=== PATIENT | female | born 1960 | race Caucasian/White ===

== ENCOUNTER 2020-04-06 06:34 | Outpatient (CLI) | payer OTHER, SELFPAY | END 2020-04-06 06:35 | disposition home or self-care (01) | PROVIDERS: PCP Family Medicine; Visit Provider Family Medicine | DX: E03.8 Other specified hypothyroidism (principal); E06.3 Autoimmune thyroiditis | CPT/HCPCS: 36415; 84443 ==

== ENCOUNTER 2020-04-23 07:09 | Outpatient (CLI) | payer OTHER, SELFPAY ==
[2020-04-23 09:17] LABS: Alanine Aminotransferase 44 U/L (4-35); Albumin Level 4.6 g/dL (3.5-5.1); Alkaline Phosphatase 131 U/L (38-126); Aspartate Amino Transferase 54 U/L (14-36); Bilirubin,Total 0.5 mg/dL (0.2-1.3); Blood Urea Nitrogen 12 mg/dL (7-17); Calcium 9.8 mg/dL (8.4-10.2); Carbon Dioxide 28 mmol/L (22-30); Chloride 102 mmol/L (98-107); Cholesterol 122 mg/dL (0-200); Estimated Glomerular Filt Rate > 60; Glucose 137 mg/dL (65-105); HDL Direct 31 mg/dL; Potassium 4.6 mmol/L (3.4-5.0); Sodium 138 mmol/L (137-145); Triglycerides 222 mg/dL (<150)
[2020-04-23 09:22] LABS: LDL Cholesterol Direct 43 mg/dL
== END 2020-04-23 07:10 | disposition home or self-care (01) ==
PROVIDERS: PCP Family Medicine; Visit Provider Family Medicine
DX: E78.5 Hyperlipidemia, unspecified (principal)
CPT/HCPCS: 36415; 80053; 80061

== ENCOUNTER 2021-10-27 06:58 | Outpatient (CLI) | payer OTHER, SELFPAY ==
--- NOTE | ~2021-10-27 | MR_ITS ---
EXAMINATION: MR brain/brain stem wo/w con DATE: 10/27/2021 08:18 INDICATION: Dizziness. TECHNIQUE: Magnetic resonance imaging (MRI) of the brain and brainstem was performed without and with 20 mL MultiHance intravenous contrast. Sequences included sagittal and axial T1-weighted FSE, axial diffusion-weighted FS EPI, axial T2*-weighted GRE, axial T2-weighted FLAIR Propeller, and axial T2-we ighted Propeller. Postcontrast sequences included axial, sagittal, and coronal T1-weighted FSE. Appar ent diffusion coefficient (ADC) maps were created. COMPARISON: None. FINDINGS: There are scattered areas of nonspecific increased T2-weighted signal intensity in the cere bral white matter, which is within normal limits for the patient's age. There is no intracranial hemo rrhage, acute infarction, or abnormal intracranial mass lesion. The ventricles are normal in size. Th e paranasal sinuses are clear. There are likely changes of ocular lens replacement surgeries. The mas toid air cells are normal. IMPRESSION: 1. Normal brain. Reviewed, dictated and finalized at location A. LABOURER IMPRESSION: 1. Normal brain.
[2021-10-27 07:42] LABS: Estimated Glomerular Filt Rate > 60
== END 2021-10-27 06:59 | disposition home or self-care (01) ==
LOC: ANHIMG 06:59
PROVIDERS: PCP Family Medicine; Visit Provider Family Medicine
DX: R42 Dizziness and giddiness (principal); H43.399 Other vitreous opacities, unspecified eye; H53.8 Other visual disturbances
CPT/HCPCS: 70553; A9577

== ENCOUNTER 2022-05-24 07:23 | Outpatient (CLI) | payer OTHER, SELFPAY ==
[2022-05-24 08:12] LABS: Anion Gap 6 mmol/L (8-16); Blood Urea Nitrogen 7 mg/dL (7-17); Calcium 9.1 mg/dL (8.4-10.2); Carbon Dioxide 28 mmol/L (22-30); Chloride 104 mmol/L (98-107); Estimated Glomerular Filt Rate > 60; Glucose 262 mg/dL (65-110); Potassium 5.2 mmol/L (3.4-5.0); Sodium 138 mmol/L (137-145)
[2022-05-24 08:34] LABS: Parathyroid Intact 99.4 pg/mL (7.5-53.5)
[2022-05-24 08:37] LABS: Basophils Absolute Auto 0.1 K/mm3 (0.0-0.1); Basophils Percent Auto 1.6 % (0.2-1.2); Eosinophils Absolute Auto 0.3 K/mm3 (0-0.3); Eosinophils Percent Auto 3.2 % (0-4.4); Hemoglobin 10.3 g/dL (12.0-15.0); Immature Granulocyte Absolute 0.05 K/mm3 (0.00-0.031); Immature Granulocyte Percent A 0.6 % (0-0.5); Lymphocytes Absolute Auto 2.72 K/mm3 (0.9-3.2); Lymphocytes Percent Auto 30.7 % (18.3-44.2); Mean Corpuscular HGB Conc 29.4 g/dl (32-36); Mean Corpuscular Volume 81.6 fl (80-100); Mean Platelet Volume 10.9 fl (7.4-10.4); Monocytes Absolute Auto 0.9 K/mm3 (0.1-0.6); Monocytes Percent Auto 9.7 % (2.6-8.5); Neutrophils Absolute Auto 4.8 K/mm3 (1.3-6.7); Neutrophils Percent Auto 54.2 % (45.5-73.1); Platelet Count Result 384 k/mm3 (150-375); Red Blood Count 4.29 M/mm3 (4.2-5.4); Red Cell Distribution Width 17.7 % (11.5-14.5); White Blood Count 8.9 K/mm3 (4.5-10.0)
[2022-05-24 09:25] LABS: Hypochromasia 1+ (NORMAL)
== END 2022-05-24 07:24 | disposition home or self-care (01) ==
PROVIDERS: PCP Family Medicine; Visit Provider Otolaryngology
DX: D64.9 Anemia, unspecified (principal); D35.1 Benign neoplasm of parathyroid gland
CPT/HCPCS: 36415; 80048; 83970; 85025

== ENCOUNTER 2022-05-30 07:50 | Outpatient (CLI) | payer OTHER, SELFPAY ==
[2022-05-30 08:36] LABS: Calcium 9.3 mg/dL (8.4-10.2); Phosphorus 3.3 mg/dL (2.5-4.5)
[2022-05-30 09:39] LABS: Vitamin D 25 Hydroxy 39.8 ng/mL
== END 2022-05-30 07:51 | disposition home or self-care (01) ==
PROVIDERS: PCP Family Medicine; Referring Provider Otolaryngology
DX: E34.9 Endocrine disorder, unspecified (principal); D35.1 Benign neoplasm of parathyroid gland
CPT/HCPCS: 36415; 82306; 82310; 84100

== ENCOUNTER 2022-06-05 08:31 | Outpatient (CLI) | payer OTHER, SELFPAY ==
--- NOTE | ~2022-06-05 | NM_ITS ---
EXAMINATION: NM parathyroid imaging w spect DATE: 06/05/2022 15:54 INDICATION: Parathyroid adenoma TECHNIQUE: 20.1 mCi Tc99m tetrofosmin (Myoview) was administered by intravenous route. Anterior image s of the neck were obtained at 10 minutes and 2 hours and 4 hours. Delayed SPECT imaging was also obt ained. COMPARISON: None. FINDINGS: There is no focus of persistent activity in the area of the thyroid or mediastinum to suggest parathy roid adenoma. The right thyroid lobe appears larger than the right suggesting possible partial left t hyroidectomy. IMPRESSION: 1: No focus of persistent delayed activity to suggest parathyroid adenoma. 2. Small left thyroid lobe suggesting prior partial left thyroidectomy. Correlate with surgical histo ry. Reviewed, dictated and finalized at location A. IMPRESSION: 1: No focus of persistent delayed activity to suggest parathyroid adenoma. 2. Small left thyroid lobe suggesting prior partial left thyroidectomy. Correla te with surgical history.
== END 2022-06-05 08:32 | disposition home or self-care (01) ==
PROVIDERS: PCP Family Medicine; Visit Provider Otolaryngology
DX: D35.1 Benign neoplasm of parathyroid gland (principal)
CPT/HCPCS: 78071; A9500

== ENCOUNTER 2022-06-21 07:13 | Outpatient (CLI) | payer OTHER, SELFPAY ==
[2022-06-25 13:39] LABS: Total Volume 3200 mL
== END 2022-06-21 07:14 | disposition home or self-care (01) ==
LOC: ANHLAB 07:17
PROVIDERS: PCP Family Medicine
DX: D35.1 Benign neoplasm of parathyroid gland (principal); E34.9 Endocrine disorder, unspecified
CPT/HCPCS: 82340

== ENCOUNTER 2022-09-06 07:57 | Outpatient (CLI) | payer OTHER, SELFPAY ==
--- NOTE | 2022-09-21 09:41 | WPDSLEEPSTUD ---
Sleep Study Date of Study: 09/06/22 Ordering Provider: Mario Garcia, Interpreting Physician: Chayito Bowden MD Sleep Study Type: Split Polysomnogram Height: 1.7 m Weight: 110.677 kg Body Mass Index: 38.2 Neck Circumference (inches): 16.5 [place]: 15 Reason for Sleep Study Snoring at night, gasping for breath Sleep History jesus Hwang is a 62-year-old woman with a history of snoring, gasping for breath and jerking during the night. She wakes up at night. She had a sleep study 20 or 30 years ago. She rarely awakens at night feeling short of breath. She occasionally awakens at night with heartburn, belching or coughing. She constantly snores loudly enough that others complain about it and is always worse when she has a cold. She occasionally wakes up gasping for breath at night. She frequently sweats excessively at night. She occasionally notices her heart pounding or beating irregularly at night. She occasionally falls asleep during the day and frequently this occurs involuntarily. She rarely falls asleep while driving. She does not have loss of muscle tone with strong emotion. She does not have daytime difficulties due to excessive sleepiness. She does not feel paralyzed on waking or falling asleep. She rarely has vivid dreamlike scenes on waking or falling asleep. She does not feel afraid to go to sleep. She occasionally has nightmares. She occasionally remembers her dreams. On occasion she has racing thoughts. She frequently feels sad or depressed. She constantly has anxiety. She frequently has muscular tension. She frequently notices parts of her body jerking. She frequently kicks at night. She occasionally has crawling and aching feelings in her legs. She frequently has leg pain at night. She frequently has morning jaw pain. She constantly grinds her teeth during sleep. She frequently is bothered by pain during the day. She rarely is awakened by pain at night. She constantly wakes up feeling stiff in the morning with sore achy muscles and pain in the neck and spine. She has dizziness, headaches, depression, memory problems and concentration difficulties. Normal bedtime is 8:00 p.m. falling asleep within 10-15 minutes, typically waking 3-4 times at night for 5 minutes. While awake, she looks at the clock, gets a drink, puts Vicks menthol on, and returns to sleep. she awakens at 4:15 a.m.. When her alarm rings, she gets up. She does not take naps in the afternoon or evening. A short nap lasting 10 or 15 minutes is not refreshing. She is usually drowsy for 1 hour after waking. She feels better in the morning compared to other times of day. Habits: Never smoked tobacco. Caffeine 4-6 servings per day. No alcohol or recreational drugs. ON LICENSE OF [facility] Past Medical History Medical History (Updated 09/21/22 @ 09:43 by Chayito Bowden MD) Allergies Anemia Arthritis Chondromalacia patellae syndrome Depression Diabetes Factor 5 Leiden mutation, heterozygous Generalized osteoarthritis of multiple sites Hx of blood clots IBS (irritable bowel syndrome) Inflammatory arthritis (~2010) Migraine Overweight Thyroid disease Surgical History Surgical History (Updated 06/14/22 @ 10:03 by Lefty Trejo) History of cardiac catheterization History of cataract extraction History of delivery History of D&C History of hysterectomy History of thyroidectomy Family History Family History (System 06/14/22 @ 10:03 by Lefty Trejo) Grandparent Family history of cataracts Family history of Alzheimer's disease Father Hypertension Asthma Cerebrovascular accident Family history of chronic obstructive pulmonary disease Family history of diabetes mellitus in first degree relative Family history of coronary artery disease Family history of congestive heart failure Mother Family history of hearing loss Other Family history of thyroid disease Social History Social History (System 06/14/22 @
[2022-09-21 09:53] VITALS: BMI 38.2
== END 2022-09-07 06:14 | disposition home or self-care (01) ==
LOC: ANHCSM 08:00
PROVIDERS: PCP Family Medicine; Visit Provider Family Medicine
DX: G47.30 Sleep apnea, unspecified (principal); G47.33 Obstructive sleep apnea (adult) (pediatric)
CPT/HCPCS: 95811

== ENCOUNTER 2022-10-26 06:39 | Outpatient (CLI) | payer OTHER, SELFPAY ==
[2022-10-26 07:15] LABS: Alanine Aminotransferase 33 U/L (6-35); Albumin Level 4.4 g/dL (3.5-5.1); Alkaline Phosphatase 149 U/L (38-126); Anion Gap 4 mmol/L (8-16); Aspartate Amino Transferase 44 U/L (14-36); Bilirubin,Total 0.3 mg/dL (0.2-1.3); Blood Urea Nitrogen 8 mg/dL (7-17); Calcium 9.1 mg/dL (8.4-10.2); Carbon Dioxide 31 mmol/L (22-30); Chloride 101 mmol/L (98-107); Estimated Glomerular Filt Rate > 60; Glucose 126 mg/dL (65-110); Potassium 4.3 mmol/L (3.4-5.0); Sodium 136 mmol/L (137-145)
[2022-10-26 07:26] LABS: Hematocrit 36.8 % (37.0-47.0); Hemoglobin 10.7 g/dL (12.0-15.0); Mean Corpuscular HGB Conc 29.1 g/dl (32-36); Mean Corpuscular Hemoglobin 24.7 pg (26-34); Mean Platelet Volume 10.5 fl (7.4-10.4); Platelet Count Result 336 k/mm3 (150-375); Red Blood Count 4.33 M/mm3 (4.2-5.4); Red Cell Distribution Width 18.1 % (11.5-14.5); White Blood Count 8.2 K/mm3 (4.5-10.0)
[2022-10-26 08:13] LABS: Free T4 Free Thyroxine 0.94 ng/mL (0.78-2.19)
[2022-10-26 08:26] LABS: Hemoglobin A1C 6.9 % (<5.7)
== END 2022-10-26 06:40 | disposition home or self-care (01) ==
LOC: ANHLAB 06:41
PROVIDERS: PCP Family Medicine; Visit Provider Physician Assistant Medical
DX: Z00.00 Encounter for general adult medical examination without abnormal findings (principal); E03.9 Hypothyroidism, unspecified; R53.83 Other fatigue; R73.03 Prediabetes; E78.2 Mixed hyperlipidemia
CPT/HCPCS: 36415; 80053; 83036; 84439; 84443; 85027

== ENCOUNTER 2022-10-27 09:45 | Outpatient (CLI) | payer OTHER, SELFPAY ==
[2022-10-27 12:57] LABS: Iron 81 ug/dL (37-170)
[2022-10-27 13:07] LABS: Percent Iron Saturation 15 % (20-50)
[2022-10-27 13:34] LABS: Ferritin 8.04 ng/mL (11.1-264)
== END 2022-10-27 09:46 | disposition home or self-care (01) ==
LOC: ANHLAB 09:46
PROVIDERS: PCP Family Medicine; Visit Provider Physician Assistant Medical
DX: D64.9 Anemia, unspecified (principal)
CPT/HCPCS: 36415; 82728; 83540; 83550

== ENCOUNTER 2023-01-23 07:00 | Outpatient (CLI) | payer OTHER, SELFPAY ==
[2023-01-23 07:50] LABS: Hematocrit 44.9 % (37.0-47.0); Mean Corpuscular HGB Conc 31.2 g/dl (32-36); Mean Corpuscular Hemoglobin 29.5 pg (26-34); Mean Corpuscular Volume 94.5 fl (80-100); Mean Platelet Volume 10.5 fl (7.4-10.4); Platelet Count Result 294 k/mm3 (150-375); Red Blood Count 4.75 M/mm3 (4.2-5.4); Red Cell Distribution Width 15.5 % (11.5-14.5)
[2023-01-23 08:07] LABS: Magnesium 1.8 mg/dL (1.6-2.3); Phosphorus 3.4 mg/dL (2.5-4.5)
[2023-01-23 08:08] LABS: Iron 88 ug/dL (37-170)
[2023-01-23 08:15] LABS: Parathyroid Intact 73.9 pg/mL (7.5-53.5)
[2023-01-23 08:18] LABS: Percent Iron Saturation 20 % (20-50)
[2023-01-23 08:24] LABS: Free T4 Free Thyroxine 1.36 ng/mL (0.78-2.19); Vitamin D 25 Hydroxy 54.1 ng/mL
[2023-01-23 08:38] LABS: MALB Creatinine Ratio < 15.4 mg/g (0-30); Microalbumin Urine Random < 6.0 mg/L (0-16.7)
[2023-02-01 06:42] LABS: Calcium/Creatinine Ratio, Ur 134 mg/g creat (10-320); Urine Calcium, Random 4.9 mg/dL (***)
== END 2023-01-23 07:01 | disposition home or self-care (01) ==
PROVIDERS: PCP Family Medicine; Referring Provider Physician Assistant Medical; Visit Provider Internal Medicine
DX: E21.3 Hyperparathyroidism, unspecified (principal); E11.9 Type 2 diabetes mellitus without complications; D64.9 Anemia, unspecified; R53.83 Other fatigue
CPT/HCPCS: 36415; 82043; 82306; 82310; 82570; 82607; 82728; 83540; 83550; 83735; 83970; 84100; 84439; 84443; 85027

== ENCOUNTER 2023-01-24 07:13 | Outpatient (CLI) | payer OTHER, SELFPAY ==
[2023-01-24 08:01] LABS: Alanine Aminotransferase 35 U/L (6-35); Albumin Level 4.7 g/dL (3.5-5.1); Alkaline Phosphatase 127 U/L (38-126); Anion Gap 7 mmol/L (8-16); Aspartate Amino Transferase 44 U/L (14-36); Bilirubin,Total 0.6 mg/dL (0.2-1.3); Blood Urea Nitrogen 10 mg/dL (7-17); Calcium 9.8 mg/dL (8.4-10.2); Carbon Dioxide 29 mmol/L (22-30); Chloride 104 mmol/L (98-107); Estimated Glomerular Filt Rate > 60; Glucose 123 mg/dL (65-110); Potassium 4.8 mmol/L (3.4-5.0); Sodium 140 mmol/L (137-145)
== END 2023-01-24 07:14 | disposition home or self-care (01) ==
LOC: ANHLAB 07:14
PROVIDERS: PCP Family Medicine; Visit Provider Physician Assistant Medical
DX: E78.2 Mixed hyperlipidemia (principal)
CPT/HCPCS: 36415; 80053

== ENCOUNTER 2023-03-07 13:32 | Outpatient (CLI) | payer OTHER, SELFPAY ==
--- NOTE | ~2023-03-07 | DEXA_ITS ---
Bone Density Report Name: YANIQUE ARREOLA Age: 63 Sex: Female Ethnicity: White Date of : 1960 Indication: hyperparathyroidism; height loss; hysterectomy; postmenopausal Referring Provider: COTY KIRKPATRICK Study: Bone densitometry was performed. Exam Date: March 07, 2023 Accession number: [id number] Bone Density: Region BMD T-score Z-score Classification AP Spine(L1-L4) 1.121 0.7 2.2 Normal Femoral Neck (Left) 0.816 -0.3 1.1 Normal Total Hip (Left) 1.005 0.5 1.6 Normal Femoral Neck (Right) 0.863 0.1 1.5 Normal Total Hip (Right) 0.975 0.3 1.3 Normal Total Hip Mean 0.990 0.4 1.5 Normal World Health Organization criteria for BMD impression classify patients as: Normal (T-score at or above -1.0), Osteopenia (T-score between -1.0 and -2.5), or Osteoporosis (T-score at or below -2.5). 10-year Fracture Risk: FRAX not reported because: All T-scores for Spine Total, Hip Total, Femoral Neck at or above -1.0 Clinical Information Provided by Patient: Has the following medical conditions: Hyperparathyroidism, Hysterectomy Patient maximum height was 69 Menopause Age: 33 No regular weight bearing exercise Onset of menses at age 13 Number of children 2 Impression: The patient has normal bone mass. Discussion: BONE DENSITY IS ABOVE THE MINIMUM DESIRABLE LEVEL AT ALL SKELETAL SITES TESTED. This patient?s bone mineral density is above the minimum desirable level (T-score -1.0 or better) at all sites measured. The patient should follow a healthful lifestyle (good nutrition with adequate calcium and vitamin D, and appropriate weight-bearing exercise). Follow-Up: Consider repeating this study in 5 years or sooner if there is some new clinical indication. Reported by: AMY on 03/07/2023 1:58:00 PM. Reviewed, dictated and finalized at location A. [facility]
--- NOTE | ~2023-03-07 | DEXA_ITS ---
Bone Density Report Name: YANIQUE ARREOLA Age: 63 Sex: Female Ethnicity: White Date of : 1960 Indication: hyperparathyroidism; height loss; hysterectomy; postmenopausal Referring Provider: COTY KIRKPATRICK Study: Bone densitometry was performed. Exam Date: March 07, 2023 Accession number: [id number] Bone Density: Region BMD T-score Z-score Classification Total Forearm (Left) 0.474 -1.9 -0.6 1/3 Forearm (Left) 0.590 -1.7 -0.3 UD Forearm (Left) 0.352 -1.6 -0.5 World Health Organization criteria for BMD impression classify patients as: Normal (T-score at or above -1.0), Osteopenia (T-score between -1.0 and -2.5), or Osteoporosis (T-score at or below -2.5). Clinical Information Provided by Patient: Has the following medical conditions: Hyperparathyroidism, Hysterectomy Patient maximum height was 69 Menopause Age: 33 No regular weight bearing exercise Onset of menses at age 13 Number of children 2 Impression: The patient has low bone mass, based on the Left Third Radius T-score. Discussion: BONE DENSITY IS LOW AT ONE OR MORE SKELETAL SITES. This patient's lowest T-score is low at one or more skeletal sites. It meets the World Health Organization's (WHO) criteria for ?low bone mass? (T-score between -1.0 and -2.5). The patient's 10-year risk of fracture as calculated by FRAX is less than the threshold where pharmacological therapy is recommended by the National Osteoporosis Foundation (NOF). However, all treatment decisions require clinical judgment and consideration of individual patient factors, including patient preferences, comorbidities, previous drug use, risk factors not captured in the FRAX model (e.g., frailty, falls, vitamin D deficiency, increased bone turnover, interval significant decline in bone density) and possible under or overestimation of fracture risk by FRAX. The patient should follow a healthful lifestyle (good nutrition with adequate calcium and vitamin D, and appropriate weight-bearing exercise). Follow-Up: Consider repeating this study in 2 to 3 years to reassess this patient's status, or sooner if there is some new clinical indication. Reported by: AMY on 03/07/2023 2:09:00 PM. Reviewed, dictated and finalized at location AGuillermo ZAMBRANO
--- NOTE | ~2023-03-07 | US_ITS ---
EXAMINATION: US thyroid DATE: 03/07/2023 14:39 INDICATION: Nontoxic single thyroid nodule. TECHNIQUE: Multiple ultrasound images of the thyroid were obtained. COMPARISON: None. FINDINGS: The right thyroid lobe measures 6.6 x 3.0 x 2.6 cm. The left thyroid lobe measures 3.5 x 1.7 x 2.0 c m. The thyroid demonstrates diffusely heterogeneous echogenicity. Vascularity is increased. In the r ight thyroid lobe, there is a 7 mm benign cystic nodule (TI-RADS TR1). IMPRESSION: 1. Heterogeneous, hypervascular thyroid, consistent with chronic lymphocytic (Merry) thyroiditis. Reviewed, dictated and finalized at location A. IMPRESSION: 1. Heterogeneous, hypervascular thyroid, consistent with chronic lymphocytic (H ashimoto) thyroiditis.
== END 2023-03-07 13:33 | disposition home or self-care (01) ==
LOC: ANHIMG 13:35
PROVIDERS: PCP Family Medicine; Visit Provider Internal Medicine
DX: E21.3 Hyperparathyroidism, unspecified (principal); E04.1 Nontoxic single thyroid nodule; M85.9 Disorder of bone density and structure, unspecified; Z78.0 Asymptomatic menopausal state
CPT/HCPCS: 76536; 77080; 77081

== ENCOUNTER 2023-03-13 11:02 | Outpatient (CLI) | payer OTHER, SELFPAY ==
--- NOTE | 2023-03-13 | ECG_ITS ---
Measurements Intervals [place] Rate: 62 P: 58 MO: 137 QRS: 1 QRSD: 117 T: 30 QT: 413 QTc: 419 Interpretive Statements SINUS RHYTHM INTRAVENTRICULAR CONDUCTION DELAY BASELINE WANDER- I, III BORDERLINE ECG NO PREVIOUS ECG AVAILABLE FOR COMPARISON Electronically Signed On 03-13-2023 13:34:42 CDT by Johnson Barrios D.O.
== END 2023-03-13 11:03 | disposition home or self-care (01) ==
LOC: ANHLAB 11:06 → ANHCARD 11:06
PROVIDERS: PCP Family Medicine; Visit Provider Family Medicine
DX: R03.0 Elevated blood-pressure reading, without diagnosis of hypertension (principal); E11.9 Type 2 diabetes mellitus without complications; Z01.818 Encounter for other preprocedural examination; I45.9 Conduction disorder, unspecified
CPT/HCPCS: 93005

== ENCOUNTER 2023-04-11 07:30 | Outpatient (CLI) | payer OTHER, SELFPAY ==
[2023-04-11 08:00] LABS: Hemoglobin A1C 5.4 % (<5.7)
== END 2023-04-11 07:31 | disposition home or self-care (01) ==
LOC: ANHLAB 07:31
PROVIDERS: PCP Family Medicine; Visit Provider Internal Medicine
DX: E11.9 Type 2 diabetes mellitus without complications (principal)
CPT/HCPCS: 36415; 83036

== ENCOUNTER 2023-04-26 14:07 | Outpatient (CLI) | payer OTHER, SELFPAY | END 2023-04-26 14:08 | disposition home or self-care (01) | LOC: ANHAUDIO 14:08 | PROVIDERS: PCP Family Medicine; Visit Provider Family Medicine | DX: H90.3 Sensorineural hearing loss, bilateral (principal) | CPT/HCPCS: 92557; 92567 ==

== ENCOUNTER 2023-05-03 07:00 | Outpatient (CLI) | payer OTHER, SELFPAY ==
[2023-05-03 07:31] LABS: Alanine Aminotransferase 25 U/L (6-35); Albumin Level 4.6 g/dL (3.5-5.1); Alkaline Phosphatase 117 U/L (38-126); Anion Gap 6 mmol/L (8-16); Aspartate Amino Transferase 32 U/L (14-36); Bilirubin,Total 0.4 mg/dL (0.2-1.3); Blood Urea Nitrogen 10 mg/dL (7-17); Calcium 9.7 mg/dL (8.4-10.2); Carbon Dioxide 31 mmol/L (22-30); Chloride 105 mmol/L (98-107); Cholesterol 93 mg/dL (0-200); Estimated Glomerular Filt Rate > 60; Glucose 89 mg/dL (65-110); HDL Direct 33 mg/dL; Potassium 4.7 mmol/L (3.4-5.0); Sodium 142 mmol/L (137-145); Triglycerides 149 mg/dL (<150)
[2023-05-03 07:42] LABS: LDL Cholesterol Direct 31 mg/dL
== END 2023-05-03 07:01 | disposition home or self-care (01) ==
PROVIDERS: PCP Family Medicine; Visit Provider Physician Assistant Medical
DX: E78.2 Mixed hyperlipidemia (principal)
CPT/HCPCS: 36415; 80053; 80061

== ENCOUNTER 2023-08-24 06:58 | Outpatient (CLI) | payer OTHER, SELFPAY ==
[2023-08-24 07:35] LABS: Basophils Absolute Auto 0.1 K/mm3 (0.0-0.1); Basophils Percent Auto 1.5 % (0.2-1.2); Eosinophils Absolute Auto 0.2 K/mm3 (0-0.3); Eosinophils Percent Auto 1.9 % (0-4.4); Hematocrit 40.7 % (37.0-47.0); Hemoglobin 12.8 g/dL (12.0-15.0); Immature Granulocyte Absolute 0.02 K/mm3 (0.00-0.031); Immature Granulocyte Percent A 0.3 % (0-0.5); Lymphocytes Absolute Auto 2.72 K/mm3 (0.9-3.2); Mean Corpuscular HGB Conc 31.4 g/dl (32-36); Mean Corpuscular Hemoglobin 30.8 pg (26-34); Mean Corpuscular Volume 98.1 fl (80-100); Mean Platelet Volume 10.3 fl (7.4-10.4); Monocytes Absolute Auto 0.7 K/mm3 (0.1-0.6); Monocytes Percent Auto 8.5 % (2.6-8.5); Neutrophils Absolute Auto 4.3 K/mm3 (1.3-6.7); Neutrophils Percent Auto 53.8 % (45.5-73.1); Platelet Count Result 290 k/mm3 (150-375); Red Blood Count 4.15 M/mm3 (4.2-5.4); Red Cell Distribution Width 12.5 % (11.5-14.5)
[2023-08-24 08:10] LABS: Free T4 Free Thyroxine 1.38 ng/mL (0.78-2.19)
[2023-08-24 08:40] LABS: Iron 171 ug/dL (37-170)
[2023-08-24 08:50] LABS: Percent Iron Saturation 46 % (20-50)
[2023-08-24 09:27] LABS: Vitamin D 25 Hydroxy 50.3 ng/mL
== END 2023-08-24 06:59 | disposition home or self-care (01) ==
PROVIDERS: Internal Medicine; PCP Family Medicine; Visit Provider Physician Assistant Medical
DX: E55.9 Vitamin D deficiency, unspecified (principal); R53.83 Other fatigue; D64.9 Anemia, unspecified; F41.9 Anxiety disorder, unspecified; E03.9 Hypothyroidism, unspecified
CPT/HCPCS: 36415; 82306; 82607; 82728; 83540; 83550; 84439; 84443; 85025

== ENCOUNTER 2023-08-31 12:28 | Outpatient (CLI) | payer OTHER, SELFPAY ==
--- NOTE | ~2023-08-31 | CT_ITS ---
Clinical Indication: Mass CT Scan of the Neck and Chest with Contrast: Technique: Contiguous sections were acquired throughout the neck and chest after intravenous administ ration of 125 cc of Omnipaque 350. Dose reduction technique was used on this scan by utilizing autom ated exposure control and iterative reconstruction technique. The dose-length product (DLP) was 590.3 0 mGy-cm. Findings: Thyroid gland is mildly enlarged and heterogeneous, without definite, discrete nodule. Ther e are shotty, mildly prominent left cervical lymph nodes, with largest individual node probably measu ring 13 mm in short axis along the posterior margin of the left sternocleidomastoid muscle (series 3 image 54). There is also mildly enlarged left supraclavicular lymph node at the base neck measuring 1 3 mm in short axis (series 3 image 74). No definite enlarged right cervical lymph nodes identified. Parapharyngeal fat preserved bilaterally. Parotid and submandibular glands are unremarkable. Orbits a re unremarkable. Paranasal sinuses and mastoid air cells are clear. Vascular structures in the neck e nhance normally. There is no evidence of any significant mediastinal, hilar or axillary lymphadenopathy. The mediastin al soft tissues and vascular structures appear normal. There is no evidence of pleural or pericardial effusion. The lungs are clear. No pulmonary nodules or infiltrates are noted. The visualized upper abdomen is unremarkable. Impression: Mild left cervical lymphadenopathy, as detailed above. Diagnostic considerations could include infect ious/inflammatory lymph nodes versus lymphoma or other metastatic disease. Consider tissue sampling o f the larger nodes, as clinically indicated. No significant abnormality seen in the chest. Reviewed, dictated and finalized at location M. Impression: Mild left cervical lymphadenopathy, as detailed above. Diagnostic consideration s could include infectious/inflammatory lymph nodes versus lymphoma or other me tastatic disease. Consider tissue sampling of the larger nodes, as clinically i ndicated. No significant abnormality seen in the chest.
[2023-08-31 12:47] LABS: Estimated Glomerular Filt Rate > 60
== END 2023-08-31 12:29 | disposition home or self-care (01) ==
PROVIDERS: PCP Family Medicine; Visit Provider Physician Assistant Medical
DX: R22.1 Localized swelling, mass and lump, neck (principal)
CPT/HCPCS: 70491; 71260; Q9967

== ENCOUNTER 2023-09-14 09:11 | Outpatient (CLI) | payer OTHER, SELFPAY ==
--- NOTE | ~2023-09-14 | US_ITS ---
EXAMINATION: US biopsy lymph node DATE: 09/14/2023 10:07 INDICATION: Localized enlarged left cervical lymph nodes TECHNIQUE: The procedure including the risks and benefits was discussed with the patient. Risks discu ssed included bleeding and infection. The patient understood the risks and agreed to proceed. The sk in overlying the supraclavicular left base of the neck was prepped and draped in usual sterile fashio n. Anesthetic was administered with 1% lidocaine subcutaneously. A 14 gauge core biopsy needle was advanced under continuous ultrasound observation to the lesion of interest. 5 core biopsy specimens were obtained, 3 placed in RPMI media and 2 in formalin. The needle was removed and the entry site w as cleaned and dressed. Post procedure ultrasound demonstrated no significant hemorrhage. FINDINGS: Ultrasound images demonstrate biopsy needle advanced through a 1.5 x 1.1 cm left supraclavi cular. IMPRESSION: 1. Successful Ultrasound-guided biopsy of one of several mildly enlarged left supraclavicular lymph n odes. Reviewed, dictated and finalized at location A. IMPRESSION: 1. Successful Ultrasound-guided biopsy of one of several mildly enlarged left s upraclavicular lymph nodes.
== END 2023-09-14 09:12 | disposition home or self-care (01) ==
PROVIDERS: PCP Family Medicine; Visit Provider Physician Assistant Medical
DX: R59.0 Localized enlarged lymph nodes (principal)
CPT/HCPCS: 38505; 76942; 88305; 88333

== ENCOUNTER 2023-10-31 11:06 | Outpatient (CLI) | payer OTHER, SELFPAY ==
[2023-10-31 11:27] LABS: Basophils Absolute Auto 0.1 K/mm3 (0.0-0.1); Basophils Percent Auto 1.2 % (0.2-1.2); Eosinophils Absolute Auto 0.1 K/mm3 (0-0.3); Eosinophils Percent Auto 1.3 % (0-4.4); Hematocrit 40.1 % (37.0-47.0); Hemoglobin 12.8 g/dL (12.0-15.0); Immature Granulocyte Absolute 0.02 K/mm3 (0.00-0.031); Immature Granulocyte Percent A 0.2 % (0-0.5); Lymphocytes Absolute Auto 2.96 K/mm3 (0.9-3.2); Lymphocytes Percent Auto 34.5 % (18.3-44.2); Mean Corpuscular HGB Conc 31.9 g/dl (32-36); Mean Corpuscular Hemoglobin 30.6 pg (26-34); Mean Corpuscular Volume 95.9 fl (80-100); Monocytes Absolute Auto 0.7 K/mm3 (0.1-0.6); Monocytes Percent Auto 7.9 % (2.6-8.5); Neutrophils Absolute Auto 4.7 K/mm3 (1.3-6.7); Neutrophils Percent Auto 54.9 % (45.5-73.1); Platelet Count Result 281 k/mm3 (150-375); Red Blood Count 4.18 M/mm3 (4.2-5.4); Red Cell Distribution Width 12.5 % (11.5-14.5); White Blood Count 8.6 K/mm3 (4.5-10.0)
[2023-10-31 17:03] LABS: Iron 66 ug/dL (37-170)
[2023-10-31 17:13] LABS: Percent Iron Saturation 18 % (20-50)
[2023-11-08 16:28] LABS: Soluble Transferrin Receptor 0.99 mg/L (0.76-1.76)
== END 2023-10-31 11:07 | disposition home or self-care (01) ==
LOC: ANHLAB 11:08
PROVIDERS: PCP Family Medicine; Visit Provider Internal Medicine Hematology & Oncology
DX: D64.9 Anemia, unspecified (principal)
CPT/HCPCS: 36415; 83540; 83550; 84238; 85025

== ENCOUNTER 2024-01-15 06:58 | Outpatient (CLI) | payer OTHER, SELFPAY ==
[2024-01-15 07:41] LABS: Cholesterol 124 mg/dL (0-200); HDL Direct 45 mg/dL; Triglycerides 121 mg/dL (<150)
[2024-01-15 07:43] LABS: Alanine Aminotransferase 24 U/L (6-35); Albumin Level 4.4 g/dL (3.5-5.1); Alkaline Phosphatase 113 U/L (38-126); Anion Gap 7 mmol/L (8-16); Aspartate Amino Transferase 40 U/L (14-36); Bilirubin,Total 0.6 mg/dL (0.2-1.3); Blood Urea Nitrogen 9 mg/dL (7-17); Calcium 9.7 mg/dL (8.4-10.2); Carbon Dioxide 31 mmol/L (22-30); Chloride 105 mmol/L (98-107); Estimated Glomerular Filt Rate > 60; Glucose 91 mg/dL (65-110); Potassium 3.9 mmol/L (3.4-5.0); Sodium 143 mmol/L (137-145)
[2024-01-15 07:52] LABS: LDL Cholesterol Direct 50 mg/dL
[2024-01-15 08:53] LABS: Free T4 Free Thyroxine 1.03 ng/mL (0.78-2.19); Hemoglobin A1C 5.3 % (<5.7)
[2024-01-15 08:59] LABS: Creatinine Urine 21.1 mg/dL
[2024-01-15 09:09] LABS: Microalbumin Urine Random < 6.0 mg/L (0-16.7)
== END 2024-01-15 06:59 | disposition home or self-care (01) ==
LOC: ANHLAB 07:00
PROVIDERS: PCP Family Medicine; Referring Provider Physician Assistant Medical; Visit Provider Internal Medicine
DX: E11.9 Type 2 diabetes mellitus without complications (principal); E78.2 Mixed hyperlipidemia
CPT/HCPCS: 36415; 80053; 80061; 82043; 83036; 84439; 84443

== ENCOUNTER 2024-03-12 12:45 | Outpatient (CLI) | payer OTHER, SELFPAY ==
[2024-03-12 13:15] LABS: Basophils Absolute Auto 0.1 K/mm3 (0.0-0.1); Basophils Percent Auto 1.1 % (0.2-1.2); Eosinophils Absolute Auto 0.2 K/mm3 (0-0.3); Eosinophils Percent Auto 2.7 % (0-4.4); Hematocrit 39.3 % (37.0-47.0); Hemoglobin 12.4 g/dL (12.0-15.0); Immature Granulocyte Absolute 0.03 K/mm3 (0.00-0.031); Immature Granulocyte Percent A 0.4 % (0-0.5); Lymphocytes Absolute Auto 2.71 K/mm3 (0.9-3.2); Lymphocytes Percent Auto 34.3 % (18.3-44.2); Mean Corpuscular HGB Conc 31.6 g/dl (32-36); Mean Corpuscular Hemoglobin 31.3 pg (26-34); Mean Corpuscular Volume 99.2 fl (80-100); Mean Platelet Volume 10.3 fl (7.4-10.4); Monocytes Absolute Auto 0.7 K/mm3 (0.1-0.6); Monocytes Percent Auto 8.3 % (2.6-8.5); Neutrophils Absolute Auto 4.2 K/mm3 (1.3-6.7); Neutrophils Percent Auto 53.2 % (45.5-73.1); Platelet Count Result 271 k/mm3 (150-375); Red Blood Count 3.96 M/mm3 (4.2-5.4); Red Cell Distribution Width 12.5 % (11.5-14.5); White Blood Count 7.9 K/mm3 (4.5-10.0)
[2024-03-14 13:57] LABS: EBV Virus Capsid Ag IgG Ab >750.00 U/mL; EBV Virus Capsid Ag IgM Ab <36.00 U/mL
== END 2024-03-12 12:46 | disposition home or self-care (01) ==
LOC: ANHLAB 12:47
PROVIDERS: PCP Family Medicine; Visit Provider Physician Assistant Medical
DX: R59.1 Generalized enlarged lymph nodes (principal); R53.83 Other fatigue
CPT/HCPCS: 36415; 85025; 86664; 86665

== ENCOUNTER 2024-03-25 14:37 | Outpatient (CLI) | payer OTHER, SELFPAY ==
--- NOTE | ~2024-03-25 | US_ITS ---
EXAMINATION: US soft tissue head and neck DATE: 03/25/2024 15:11 INDICATION: Nonspecific lymphadenitis, unspecified. TECHNIQUE: Multiple grayscale and Doppler ultrasound images of the head and neck were obtained. COMPARISON: CT neck 08/31/2023 FINDINGS: There are normal-sized lymph nodes in left neck in the patient's area of concern. IMPRESSION: 1. Normal lymph nodes in left neck in the patient's area of concern. Reviewed, dictated and finalized at location A.
== END 2024-03-25 14:38 | disposition home or self-care (01) ==
PROVIDERS: PCP Family Medicine; Visit Provider Physician Assistant Medical
DX: I88.9 Nonspecific lymphadenitis, unspecified (principal)
CPT/HCPCS: 76536

== ENCOUNTER 2024-05-02 07:37 | Outpatient (CLI) | payer OTHER, SELFPAY ==
[2024-05-02 08:51] LABS: Complement C3 122 mg/dL (88-165); Immunoglobulin A 104 mg/dL (70-400); Immunoglobulin G 1107 mg/dL (700-1600); Immunoglobulin M 51 mg/dL (40-230); Rheumatoid Factor < 12.0 IU/ML (<12)
[2024-05-02 08:53] LABS: Basophils Absolute Auto 0.1 K/mm3 (0.0-0.1); Basophils Percent Auto 1.5 % (0.2-1.2); Eosinophils Absolute Auto 0.2 K/mm3 (0-0.3); Eosinophils Percent Auto 2.8 % (0-4.4); Hemoglobin 12.3 g/dL (12.0-15.0); Immature Granulocyte Absolute 0.01 K/mm3 (0.00-0.031); Immature Granulocyte Percent A 0.1 % (0-0.5); Lymphocytes Absolute Auto 2.49 K/mm3 (0.9-3.2); Lymphocytes Percent Auto 36.5 % (18.3-44.2); Mean Corpuscular HGB Conc 30.8 g/dl (32-36); Mean Corpuscular Hemoglobin 31.1 pg (26-34); Mean Platelet Volume 10.4 fl (7.4-10.4); Monocytes Absolute Auto 0.6 K/mm3 (0.1-0.6); Monocytes Percent Auto 8.6 % (2.6-8.5); Neutrophils Absolute Auto 3.5 K/mm3 (1.3-6.7); Neutrophils Percent Auto 50.5 % (45.5-73.1); Platelet Count Result 282 k/mm3 (150-375); Red Blood Count 3.96 M/mm3 (4.2-5.4); Red Cell Distribution Width 12.4 % (11.5-14.5); White Blood Count 6.8 K/mm3 (4.5-10.0)
[2024-05-02 09:23] LABS: Appearance Urine Clear (Clear); Bilirubin Urine Negative (Negative); Blood Urine Negative (Negative); Color Urine Yellow (Yellow); Glucose Urine UA Negative (Negative); Ketones Urine Negative (Negative); Leukocyte Esterase Ur Negative LEU/UL (Negative); Nitrate Urine Negative (Negative); Protein Urine Negative (Negative); Specific Grav Ur 1.005 (1.001-1.035); Urobilinogen Urine 0.2 mg/dL (<2.0)
[2024-05-02 09:27] LABS: Add Urine Microscopic? NO
[2024-05-02 10:13] LABS: Creatinine Urine 19.9 mg/dL; Total Protein Urine Random 11 mg/dL; Ur Ttl Prot Creatinine Ratio 0.55 mg/mg (0-0.20)
[2024-05-03 04:38] LABS: Protein, Total 7.1 g/dL (6.1-8.1)
[2024-05-05 13:33] LABS: Albumin 4.2 g/dL (3.8-4.8); Alpha 1 Globulin 0.3 g/dL (0.2-0.3); Alpha 2 Globulin 0.8 g/dL (0.5-0.9); Beta 1 Globulin 0.5 g/dL (0.4-0.6); Gamma Globulin 1.1 g/dL (0.8-1.7)
[2024-05-05 13:43] LABS: Kappa\\Lambda Light Chains 1.34 (0.26-1.65); Lambda Light Chain 13.9 mg/L (5.7-26.3)
[2024-05-05 14:28] LABS: SS-A >8.0 POS AI (<1.0 NEG); SS-B <1.0 NEG AI (<1.0 NEG)
[2024-05-05 14:53] LABS: Cyclic Citrullinated Peptide <16 UNITS
[2024-05-06 12:28] LABS: ANA Pattern Cytoplasmic; ANA Titer 1:40 titer; Anti Nuclear Antibody Pattern Nuclear, Speckled; Anti Nuclear Antibody Titer 1:40 titer
== END 2024-05-02 07:38 | disposition home or self-care (01) ==
DX: M35.00 Sjogren syndrome, unspecified (principal)
CPT/HCPCS: 36415; 81003; 82570; 82784; 83883; 84155; 84156; 84165; 85025; 86038; 86039; 86160; 86200; 86235; 86430

== ENCOUNTER 2024-05-08 11:50 | Outpatient (CLI) | payer OTHER, SELFPAY ==
--- NOTE | 2024-05-08 11:52 | ECG_ITS ---
Test Date: 2024-05-08 12:18:38 Measurements Intervals [place] Rate: 63 P: 5 CO: 130 QRS: 5 QRSD: 107 T: 41 QT: 404 QTc: 415 Interpretive Statements SINUS RHYTHM No previous ECG available for comparison Electronically Signed On 05-08-2024 13:39:42 CDT by Belem Gongora M.D.
== END 2024-05-08 11:51 | disposition home or self-care (01) ==
LOC: ANHCARD 11:52
PROVIDERS: Visit Provider Physician Assistant Medical
DX: R07.9 Chest pain, unspecified (principal)
CPT/HCPCS: 93005

== ENCOUNTER 2024-05-27 08:40 | Outpatient (CLI) | payer OTHER, SELFPAY ==
[2024-05-27 08:58] LABS: Basophils Absolute Auto 0.1 K/mm3 (0.0-0.1); Basophils Percent Auto 1.2 % (0.2-1.2); Eosinophils Absolute Auto 0.2 K/mm3 (0-0.3); Hematocrit 39.1 % (37.0-47.0); Hemoglobin 12.3 g/dL (12.0-15.0); Immature Granulocyte Absolute 0.02 K/mm3 (0.00-0.031); Immature Granulocyte Percent A 0.3 % (0-0.5); Lymphocytes Absolute Auto 2.47 K/mm3 (0.9-3.2); Lymphocytes Percent Auto 33.4 % (18.3-44.2); Mean Corpuscular HGB Conc 31.5 g/dl (32-36); Mean Corpuscular Hemoglobin 31.7 pg (26-34); Mean Corpuscular Volume 100.8 fl (80-100); Monocytes Absolute Auto 0.8 K/mm3 (0.1-0.6); Monocytes Percent Auto 11.1 % (2.6-8.5); Neutrophils Absolute Auto 3.8 K/mm3 (1.3-6.7); Platelet Count Result 232 k/mm3 (150-375); Red Blood Count 3.88 M/mm3 (4.2-5.4); Red Cell Distribution Width 12.3 % (11.5-14.5); White Blood Count 7.4 K/mm3 (4.5-10.0)
[2024-05-27 09:37] LABS: Iron 107 ug/dL (37-170)
[2024-05-27 09:46] LABS: Percent Iron Saturation 29 % (20-50)
== END 2024-05-27 08:41 | disposition home or self-care (01) ==
LOC: ANHLAB 08:41
PROVIDERS: Visit Provider Internal Medicine Hematology & Oncology
DX: D64.9 Anemia, unspecified (principal)
CPT/HCPCS: 36415; 82728; 83540; 83550; 85025

== ENCOUNTER 2024-07-15 15:36 | Outpatient (CLI) | payer OTHER, SELFPAY ==
--- NOTE | ~2024-07-15 | US_ITS ---
EXAMINATION: US thyroid DATE: 07/15/2024 16:15 INDICATION: Multinodular goiter. TECHNIQUE: Multiple ultrasound images of the thyroid were obtained. COMPARISON: Ultrasound 03/07/2023 FINDINGS: The right thyroid lobe measures 6.6 x 2.1 cm. The left thyroid lobe measures 3.5 x 1.7 cm. The thyr oid is diffusely heterogeneous and hypoechoic. Vascularity is increased. In the right thyroid lobe, t here is a 5 mm solid, very hypoechoic, wider than tall nodule with smooth margin without echogenic fo ci (TI-RADS TR4). IMPRESSION: 1. Heterogeneous, hypervascular thyroid, consistent with chronic lymphocytic (Merry's) thyroiditi s. 2. Small thyroid nodule, likely not clinically significant. No follow-up is needed. Reviewed, dictated and finalized at location A. IMPRESSION: 1. Heterogeneous, hypervascular thyroid, consistent with chronic lymphocytic (H ashimoto's) thyroiditis. 2. Small thyroid nodule, likely not clinically significant. No follow-up is nee ded.
== END 2024-07-15 15:37 | disposition home or self-care (01) ==
PROVIDERS: PCP Family Medicine; Visit Provider Internal Medicine
DX: E04.1 Nontoxic single thyroid nodule (principal)
CPT/HCPCS: 76536

== ENCOUNTER 2024-07-28 15:21 | Outpatient (CLI) | payer OTHER, SELFPAY ==
[2024-07-28 16:02] LABS: Alanine Aminotransferase 22 U/L (6-35); Aspartate Amino Transferase 38 U/L (14-36)
== END 2024-07-28 15:22 | disposition home or self-care (01) ==
LOC: ANHLAB 15:23
PROVIDERS: PCP Family Medicine; Visit Provider Podiatrist Foot & Ankle Surgery
DX: B35.1 Tinea unguium (principal)
CPT/HCPCS: 36415; 84450; 84460

== ENCOUNTER 2024-10-01 07:16 | Outpatient (CLI) | payer OTHER, SELFPAY ==
--- NOTE | ~2024-10-01 | XR_ITS ---
Lumbosacral Spine: AP, oblique, and lateral views Clinical History: Pain Findings: The normal lordotic curve is maintained. The vertebral bodies and posterior elements are i ntact. The intervertebral disc spaces are preserved. There is moderate to advanced facet arthropathy , worst from L4 through S1. The sacroiliac joints are normally outlined. Impression: Extensive facet arthropathy, as above. Reviewed, dictated and finalized at location M. PRESS OPERATOR Impression: Extensive facet arthropathy, as above.
== END 2024-10-01 07:17 | disposition home or self-care (01) ==
PROVIDERS: PCP Family Medicine; Visit Provider Family Medicine
DX: M47.897 Other spondylosis, lumbosacral region (principal)
CPT/HCPCS: 72110

== ENCOUNTER 2024-10-02 11:14 | Outpatient (CLI) | payer OTHER, SELFPAY ==
--- NOTE | ~2024-10-02 | XR_ITS ---
EXAMINATION: XR hip BI 2V w AP pelvis DATE: 10/02/2024 11:37 INDICATION: Right hip pain. TECHNIQUE: An anteroposterior view of the pelvis and 2 views of each hip were obtained. COMPARISON: Pelvis and hip radiographs 10/01/2019 FINDINGS: Alignment is normal. No fracture. There is mild osteoarthritis of the hips characterized by tiny osteophytes. There is mild lumbar spondylosis. There are suture anchors in the pubic bones. IMPRESSION: 1. Mild osteoarthritis of the hips. Reviewed, dictated and finalized at location A. MNIST
== END 2024-10-02 11:15 | disposition home or self-care (01) ==
LOC: ANHIMG 11:19
PROVIDERS: PCP Family Medicine; Visit Provider Family Medicine
DX: M16.0 Bilateral primary osteoarthritis of hip (principal)
CPT/HCPCS: 73521

== ENCOUNTER 2024-10-08 08:20 | Outpatient (CLI) | payer OTHER, SELFPAY ==
[2024-10-08 10:29] LABS: Free T4 Free Thyroxine 1.45 ng/mL (0.78-2.19)
== END 2024-10-08 08:21 | disposition home or self-care (01) ==
LOC: ANHLAB 08:22
PROVIDERS: PCP Family Medicine; Visit Provider Internal Medicine
DX: E03.9 Hypothyroidism, unspecified (principal)
CPT/HCPCS: 36415; 84439; 84443

== ENCOUNTER 2024-10-15 10:33 | Outpatient (CLI) | payer OTHER, SELFPAY ==
--- NOTE | ~2024-10-15 | US_ITS ---
EXAMINATION:US venous doppler LE RT INDICATION:Hip pain. Right lower extremity pain. TECHNIQUE: Multiple grayscale, color flow and Doppler images of the right lower extremity deep venous systems were obtained and reviewed. COMPARISON:No prior studies for comparison. FINDINGS: The common femoral, superficial femoral and popliteal veins demonstrate normal respiratory variation, augmentation and compressibility. Color flow is also seen within the posterior tibial, pe roneal, greater saphenous and profunda veins. IMPRESSION: 1: No lower extremity deep venous thrombosis. Reviewed, dictated and finalized at location B. MANAGER
== END 2024-10-15 10:34 | disposition home or self-care (01) ==
PROVIDERS: PCP Family Medicine; Visit Provider Family Medicine
DX: M79.661 Pain in right lower leg (principal); D68.51 Activated protein C resistance
CPT/HCPCS: 93971